=== PATIENT | female | born 1975 | race Caucasian/White ===

== ENCOUNTER 2024-05-06 11:47 | Outpatient (REF) | payer OTHER, SELFPAY ==
[2024-05-06 14:08] LABS: Vitamin B12 819 pg/mL (200-900)
== END 2024-05-06 11:48 | disposition home or self-care (01) ==
LOC: HO.LAB 11:47
PROVIDERS: PCP Internal Medicine; Visit Provider Psychiatry & Neurology Neurology
DX: G31.84 Mild cognitive impairment of uncertain or unknown etiology (principal)
CPT/HCPCS: 36415; 82607